=== PATIENT | female | born 1975 | race Caucasian/White ===

== ENCOUNTER 2022-09-23 20:26 | Emergency (ER) | payer SELFPAY ==
[~2022-09-23] VITALS: Ht 157.5 cm; Wt 89.8 kg
--- NOTE | 2022-09-23 20:58 | NUR ---
Dr Melissa joseph al.
[2022-09-23] MEDS ORDERED: ONDA4TAB5 PO (21:27)
[2022-09-23] MEDS ORDERED: OXYC-128 PO (21:27)
--- NOTE | 2022-09-23 21:46 | NUR ---
Patient discharged to home in stable condition with son. A/O x4. NAD noted. Ambulatory with steady gait. Written and verbal after care instructions given. Patient verbalizes understanding of instructions. Stressed follow up or return to ER for worsening s/s. All belongings with patient.
[2022-09-23 22:52] VITALS: BP 145/87
== END 2022-09-23 21:46 | disposition home or self-care (01) ==
LOC: ER 20:29
DX: S89.90XA Unspecified injury of unspecified lower leg, initial encounter (principal); S09.90XA Unspecified injury of head, initial encounter; V49.40XA Driver injured in collision with unspecified motor vehicles in traffic accident, initial encounter; Y92.414 Local residential or business street as the place of occurrence of the external cause; T14.8XXA Other injury of unspecified body region, initial encounter
CPT/HCPCS: A4663